=== PATIENT | male | born 1935 | race Caucasian/White ===

== ENCOUNTER 2019-08-16 12:11 | Emergency (ER) | payer MEDICARE, OTHER ==
[2019-08-16 12:50] LABS: ABSOLUTE LYMPHOCYTES (AUTO) 0.6 10^3/uL (0.5-4.7); ABSOLUTE MONOCYTES (AUTO) 0.4 10^3/uL (0.1-1.4); ABSOLUTE NEUT (AUTO) 5.3 10^3/uL (1.7-8.2); BASOPHILS % (AUTO) 0.3 % (0-2); EOSINOPHILS % (AUTO) 0.2 % (0-6); HEMATOCRIT 43.5 % (37.9-51.0); HEMOGLOBIN 14.5 g/dL (13.5-17.0); LYMPHOCYTES % (AUTO) 8.8 % (13-45); MEAN CORPUSCULAR HEMOGLOBIN 31.7 pg (27.0-33.4); MEAN CORPUSCULAR HGB CONC 33.3 g/dL (32.0-36.0); MEAN CORPUSCULAR VOLUME 95 fl (80-97); PLATELET COUNT 151 10^3/uL (150-450); RED BLOOD COUNT 4.57 10^6/uL (4.35-5.55); RED CELL DISTRIBUTION WIDTH 13.6 % (11.5-14.0); SEGMENTED NEUTROPHILS % (AUTO) 84.7 % (42-78); TOTAL CELLS COUNTED % (AUTO) 100 %; WHITE BLOOD COUNT 6.3 10^3/uL (4.0-10.5)
--- NOTE | 2019-08-16 12:51 | ER Document Report ---
ED Medical Screen (RME) - General Chief Complaint: Fall Stated Complaint: DIZZINESS Time Seen by Provider: 08/16/19 12:48 Primary Care Provider: SAJI WHEELER MD [Primary Care Provider] - Follow up as needed Notes: 84-year-old male with atrial fibrillation on Eliquis presents to the emergency department after a fall sustained this morning. Unclear if it was mechanical but patient did state he had some dizziness and lightheadedness prior to falling. Did not lose consciousness and remembers both before and after. Did not feel palpitations at the time. No chest pain or shortness of breath. No nausea or vomiting. Exam: Well-appearing no acute distress, lungs clear to auscultation all li, irregularly irregular cardiac rhythm, S1-S2 heard no murmurs I have greeted and performed a rapid initial assessment of this patient. A comprehensive ED assessment and evaluation of the patient, analysis of test results and completion of medical decision making process will be conducted by an additional ED providers. TRAVEL OUTSIDE OF THE [place] IN LAST 30 DAYS: No - Related Data Allergies/Adverse Reactions: No Known Allergies Allergy (Unverified 08/16/19 12:34) Home Medications: eliquis Physical Exam - Vital signs Vitals: Temp Pulse Resp BP Pulse Ox 97.4 F 79 18 142/91 H 99 08/16/19 12:25 08/16/19 12:25 08/16/19 12:25 08/16/19 12:25 08/16/19 12:25 Course - Vital Signs Vital signs: Temp Pulse Resp BP Pulse Ox 97.4 F 79 18 142/91 H 99 08/16/19 12:25 08/16/19 12:25 08/16/19 12:25 08/16/19 12:25 08/16/19 12:25 - Laboratory Result Diagrams: 08/16/19 12:20 08/16/19 12:20 Doctor's Discharge - Discharge Referrals: SAJI WHEELER MD [Primary Care Provider] - Follow up as needed
[2019-08-16 12:53] LABS: INTERNATIONAL RATION (INR) 1.46; PROTHROMBIN TIME 17.9 SEC (11.4-15.4)
[2019-08-16 13:14] LABS: ALBUMIN 3.9 g/dL (3.5-5.0); ALKALINE PHOSPHATASE 62 U/L (38-126); ANION GAP 8 (5-19); ASPARTATE AMINO TRANSFERASE 31 U/L (17-59); BILIRUBIN,DIRECT 0.3 mg/dL (0.0-0.4); BILIRUBIN,TOTAL 4.1 mg/dL (0.2-1.3); BLOOD UREA NITROGEN 31 mg/dL (7-20); CALCIUM 9.2 mg/dL (8.4-10.2); CARBON DIOXIDE 26 mmol/L (22-30); CHLORIDE 107 mmol/L (98-107); GLUCOSE 94 mg/dL (75-110); POTASSIUM 4.2 mmol/L (3.6-5.0); TOTAL PROTEIN 7.2 g/dL (6.3-8.2)
--- NOTE | 2019-08-16 14:02 | ER Document Report ---
ED Dizziness/Weakness - General Chief Complaint: Fall Stated Complaint: DIZZINESS Time Seen by Provider: 08/16/19 12:48 Primary Care Provider: KULDEEP ARMSTRONG MD [Primary Care Provider] - Follow up tomorrow Notes: Patient is an 84-year-old male who presents to the emergency department after tripping today. Patient was brought in by EMS. Patient states that he woke up this morning from a bad dream. States he did not have any pain at that time. He went to go out to get the newspaper and he ended up tripping. Family is not at bedside to provide any additional history. Patient states that he has been dizzy for the past 5 days. This morning he had diarrhea. Patient is currently on Eliquis for atrial fibrillation. Patient admits that 10 days prior he was noncompliant with his medications, but for the past 10 days he has been compliant with them. Took his medications this morning. TRAVEL OUTSIDE OF THE [place] IN LAST 30 DAYS: No - Related Data Allergies/Adverse Reactions: No Known Allergies Allergy (Unverified 08/16/19 12:34) Home Medications: eliquis Past Medical History - General Information source: Patient, Relative - Social History Smoking Status: Unknown if Ever Smoked Family History: Reviewed & Not Pertinent Patient has suicidal ideation: No Patient has homicidal ideation: No Review of Systems - Review of Systems Notes: REVIEW OF SYSTEMS: CONSTITUTIONAL : Denies recent illness. Denies recent unintentional weight loss. Denies fever, chills, or sweats. EENT: Denies eye, ear, throat, or mouth pain, discharge, or symptoms. Denies na christie or sinus congestion. CARDIOVASCULAR: Denies chest pain. RESPIRATORY: Denies shortness of breath, cough, congestion, difficulty breathing, or wheezing. GASTROINTESTINAL: Denies nausea, vomiting, and diarrhea. Denies abdominal pain. Denies constipation. GENITOURINARY: Denies difficulty urinating, burning, blood in urine, urgency or frequency. MUSCULOSKELETAL: Denies neck and back pain. Denies joint pain or swelling. SKIN: Denies rash, itchiness, or lesions HEMATOLOGIC : Denies easy bruising or bleeding. LYMPHATIC: Denies swollen, painful, enlarged glands. NEUROLOGICAL: See HPI. PSYCHIATRIC: Denies stress, anxiety, alteration in sleep patterns, or depression. All other systems reviewed and negative. Physical Exam - Vital signs Vitals: Temp Pulse Resp BP Pulse Ox 97.4 F 79 18 142/91 H 99 08/16/19 12:25 12 12:25 08/16/19 12:25 08/16/19 12:25 08/16/19 12:25 - Notes Notes: PHYSICAL EXAMINATION: GENERAL: Appears well, healthy, well-nourished, no acute distress. HEAD: Normocephalic, atraumatic. EYES: PERRL, conjunctiva normal, all extraocular movements intact, sclera nonicteric ENT: Moist mucous membranes. NECK: Supple, no noticeable swelling, redness, rash. Normal range of motion. LUNGS: Equal breath sounds bilaterally and clear to auscultation. No wheezes rales or rhonchi. CARDIOVASCULAR: Irregularly irregular heart rate. Atrial fibrillation.. Radial pulses 2+, normal. ABDOMEN: Normoactive bowel sounds. Soft, nontender, no guarding, no rebound tenderness, and no masses palpated. EXTREMITIES: 1+ pitting edema. No cyanosis. NEUROLOGICAL: Moves all extremities upon command. Strength 5/5 in upper extr emities and 4/5 in lower extremities PSYCH: Normal mood, normal affect. SKIN: Warm, dry. No rash, lesions, ulcerations noted. Normal skin turgor. Course - Re-evaluation Re-evalutation: 08/16/19 17:00 I attempted to get the patient up to urinate, but but he was unable to walk without assistance. Patient was very unsteady in his gait. Awaiting urinalysis. Will order straight cath for urinalysis. Patient's hematology does not show cytosis, but he has a 4.7 neutrophils, suggesting that he has an infection. On his CAT scan that showed that he did have sinus disease. Patient states that he has been a little bit congested. Patient is allergic to penicillin and will be started on doxycycline. BNP was mildly elevated, but not very remarkable. Chest x-ray was negative for any acute findings. No pneumonia or pulmonary edema noted. Patient has a large amount of blood in his urine, but this most likely is due to the patient being straight cathed. Patient denies any urinary symptoms. CT of the head showed chronic microvascular ischemia. No acute stroke noted. No intracranial hemorrhage noted. 08/16/19 18:[address] Miranda, the hospitalist doctor. He states that the patient does not meet admission criteria and he is recommending the social professionals be involved, the social professionals has seen the patient and recommended placement. I had a lengthy conversation with the daughter in the importance of making sure that he sees his primary care provider so the primary care provider can place a referral for assisted living or rehab. Daughter is in agreement with this plan. Follow-up precautions were given. Verbal discharge instructions were given to the patient. They verbalized understanding. They are stable for discharge. - Vital Signs Vital signs: Temp Pulse Resp BP Pulse Ox 97.6 F 101 H 11 L 147/90 H 98 08/16/19 19:09 08/16/19 19:09 08/16/19 19:09 08/16/19 19:09 08/16/19 19:09 - Laboratory Result Diagrams: 08/16/19 12:20 08/16/19 12:20 Laboratory results interpreted by me: 08/16/19 08/16/19 08/16/19 12:20 12:20 12:20 Lymph % (Auto) 8.8 L Seg Neutrophils % 84.7 H PT 17.9 H BUN 31 H Total Bilirubin 4.1 H NT-Pro-B Natriuret Pep Urine Protein Urine Ketones Urine Blood Urine Urobilinogen 08/16/19 08/16/19 12:20 16:30 Lymph % (Auto) Seg Neutrophils % PT BUN Total Bilirubin NT-Pro-B Natriuret Pep 817 H Urine Protein 100 H Urine Ketones TRACE H Urine Blood LARGE H Urine Urobilinogen 2.0 H Discharge - Discharge Clinical Impression: Fall Qualifiers: Encounter type: initial encounter Qualified Code(s): W19.XXXA - Unspecified fall, initial encounter Sinus infection Qualifiers: Sinusitis location: sphenoidal Chronicity: acute Recurrence: non-recurrent Qualified Code(s): J01.30 - Acute sphenoidal sinusitis, unspecified Condition: Stable Disposition: HOME, SELF-CARE Additional Instructions: You were seen today in the emergency department after a fall. Your CT of the head shows that you have old changes. Unfortunately, you do not meet any admission criteria. Please see your primary care doctor tomorrow to get a re ferral for assisted living or rehabilitation centers to help you with physical therapy. You are also being sent home with antibiotics, as you have a sinus infection noted on your CT. Please make sure you finish all your antibiotics as prescribed. If you have worsening symptoms, please return to the emergency department. Prescriptions: Doxycycline Hyclate 100 mg PO BID #14 capsule Referrals: KULDEEP ARMSTRONG MD [Primary Care Provider] - Follow up tomorrow
--- NOTE | 2019-08-16 14:31 | EKG REPORT ---
SEVERITY:- ABNORMAL ECG - SINUS RHYTHM MULTIPLE ATRIAL PREMATURE COMPLEXES NONSPECIFIC INTRAVENTRICULAR CONDUCTION DELAY LATERAL INFARCT, AGE INDETERMINATE ABNRM R PROG, CONSIDER ASMI OR LEAD PLACEMENT : Confirmed by: Jennifer Ghosh MD 16-Aug-2019 14:30:14
--- NOTE | 2019-08-16 14:43 | RADIOLOGY REPORT (SQ) ---
EXAM DESCRIPTION: CT HEAD WITHOUT COMPLETED DATE/TIME: 08/16/2019 2:28 pm REASON FOR STUDY: Fall on Eliquis COMPARISON: None. TECHNIQUE: Axial images acquired through the brain without intravenous contrast. Images reviewed wi th bone, brain and subdural windows. Additional sagittal and coronal reconstructions were generated. Images stored on PACS. All CT scanners at this facility use dose modulation, iterative reconstruction, and/or weight based d osing when appropriate to reduce radiation dose to as low as reasonably achievable (ALARA). [facility]: Dose Right [facility]: CareDose [facility]: Dose Right [facility]: Teradose 4D [facility]: [employer] RADIATION DOSE: CT Rad equipment meets quality standard of care and radiation dose reduction techniq ues were employed. CTDIvol: 53.2 mGy. DLP: 1124 mGy-cm. mGy. LIMITATIONS: None. FINDINGS: VENTRICLES: Normal size and contour. CEREBRUM: No masses. No hemorrhage. No midline shift. No evidence for acute infarction. Areas of l ow density in the white matter most likely chronic small vessel ischemic changes. CEREBELLUM: No masses. No hemorrhage. No alteration of density. No evidence for acute infarction. EXTRAAXIAL SPACES: No fluid collections. No masses. ORBITS AND GLOBE: No intra- or extraconal masses. Normal contour of globe without masses. CALVARIUM: No fracture. PARANASAL SINUSES: Mucoperiosteal changes seen in the left sphenoid sinus. SOFT TISSUES: No mass or hematoma. OTHER: No other significant finding. IMPRESSION: Chronic microvascular ischemia with no acute intracranial imaging findings. Left spheno id sinus disease. EVIDENCE OF ACUTE STROKE: NO. COMMENT: Quality ID # [id number]: Final reports with documentation of one or more dose reduction techniques (e.g., Automated exposure control, adjustment of the mA and/or kV according to patient size, use of iterative reconstruction technique) TECHNICAL DOCUMENTATION: JOB ID: [id number] [employer]- All Rights Reserved Reading location - IP/workstation name: [email or web address]
--- NOTE | 2019-08-16 14:56 | RADIOLOGY REPORT (SQ) ---
EXAM DESCRIPTION: CHEST SINGLE VIEW COMPLETED DATE/TIME: 08/16/2019 2:43 pm REASON FOR STUDY: fall COMPARISON: None. EXAM PARAMETERS: NUMBER OF VIEWS: One view. TECHNIQUE: Single frontal radiographic view of the chest acquired. RADIATION DOSE: NA LIMITATIONS: None. FINDINGS: LUNGS AND PLEURA: No opacities, masses or pneumothorax. No pleural effusion. MEDIASTINUM AND HILAR STRUCTURES: No masses. Contour normal. HEART AND VASCULAR STRUCTURES: Heart normal in size. Normal vasculature. BONES: No acute findings. HARDWARE: None in the chest. OTHER: No other significant finding. IMPRESSION: NO ACUTE RADIOGRAPHIC FINDING IN THE CHEST. TECHNICAL DOCUMENTATION: JOB ID: [id number] [employer]- All Rights Reserved Reading location - IP/workstation name: [email or web address]
[2019-08-16 17:40] LABS: AMORPHOUS SEDIMENT,URINE TRACE /HPF; APPEARANCE,URINE CLOUDY; BILIRUBIN,URINE NEGATIVE (NEGATIVE); COLOR,URINE AMBER; GLUCOSE, URINE NEGATIVE (NEGATIVE); KETONES,URINE TRACE mg/dL (NEGATIVE); LEUKOCYTE ESTERASE,URINE NEGATIVE (NEGATIVE); NITRITE,URINE NEGATIVE (NEGATIVE); PROTEIN,URINE 100 mg/dL (NEGATIVE); URINE SPECIFIC GRAVITY 1.025
[2019-08-16] MEDS ORDERED: NORMAL SALINE 1000 ML 1,000 ML IV ONE (17:45)
[2019-08-16] MEDS ORDERED: AMOXICILLIN TR/POT CLAVULANATE 500-125 MG TAB PO ONE (18:26)
[2019-08-16] MEDS ORDERED: AMOXICILLIN TRIHYD 250 MG CAPSULE PO ONE (18:26)
[2019-08-16] MEDS ORDERED: DOXYCYCLINE HYCLATE 100 MG TABLET PO ONE (18:50)
[2019-08-16 18:54] VITALS: BP 147/90
== END 2019-08-16 19:13 | disposition home or self-care (01) ==
LOC: ER 12:11
DX: J01.30 Acute sphenoidal sinusitis, unspecified (principal); R42 Dizziness and giddiness; R19.7 Diarrhea, unspecified; W01.0XXA Fall on same level from slipping, tripping and stumbling without subsequent striking against object, initial encounter; Y92.009 Unspecified place in unspecified non-institutional (private) residence as the place of occurrence of the external cause; I48.91 Unspecified atrial fibrillation; Z79.02 Long term (current) use of antithrombotics/antiplatelets; Z88.0 Allergy status to penicillin
CPT/HCPCS: 93005; 99284; 96360; 36415; 85025; 85610; 80053; 81001; 84484; 83880; 71045; 70450; 93010; A9270; J7030